=== PATIENT | male | born 1995 | race Caucasian/White ===

== ENCOUNTER 2023-04-12 18:13 | Emergency (ER) | payer SELFPAY ==
[~2023-04-12] VITALS: Ht 167.6 cm; Wt 67.1 kg
[~2023-04-12 18:13] MED LIST: [UNRECOGNIZED DRUG - REMARK]
[2023-04-12 20:50] VITALS: BP 125/72
== END 2023-04-12 20:47 | disposition home or self-care (01) ==
LOC: ER 18:13
DX: R07.9 Chest pain, unspecified (principal); F17.200 Nicotine dependence, unspecified, uncomplicated; R00.1 Bradycardia, unspecified
CPT/HCPCS: 93005; 93010; 99284-25